=== PATIENT | male | born 1980 | race Caucasian/White ===

== ENCOUNTER 2018-10-22 17:42 | Emergency (ER) | payer OTHER ==
[~2018-10-22] VITALS: Ht 177.8 cm; Wt 76.0 kg
[2018-10-22 17:49] VITALS: BP 130/80
[2018-10-22] MEDS ORDERED: ketorolac tromethamine 15mg/ml inj. IM ONE (20:00)
[2018-10-22] MEDS ORDERED: cephalexin 250mg capsule PO ONE (20:00)
[2018-10-22] MEDS ORDERED: CEPH-572 PO (20:07)
== END 2018-10-22 20:22 | disposition home or self-care (01) ==
LOC: ER 17:43
DX: I80.02 Phlebitis and thrombophlebitis of superficial vessels of left lower extremity (principal); L03.116 Cellulitis of left lower limb; M10.9 Gout, unspecified; Z79.2 Long term (current) use of antibiotics
CPT/HCPCS: 96372; 99283; J1885

== ENCOUNTER 2020-09-27 20:52 | Emergency (ER) | payer SELFPAY ==
[~2020-09-27] VITALS: Ht 175.3 cm; Wt 95.5 kg
[2020-09-27 21:00] VITALS: BP 114/83
== END 2020-09-27 21:23 ==
LOC: ER 20:53
DX: F10.129 Alcohol abuse with intoxication, unspecified (principal); G89.29 Other chronic pain; F17.200 Nicotine dependence, unspecified, uncomplicated; V87.7XXA Person injured in collision between other specified motor vehicles (traffic), initial encounter; Y93.89 Activity, other specified; Y92.488 Other paved roadways as the place of occurrence of the external cause; Y99.8 Other external cause status; Y90.9 Presence of alcohol in blood, level not specified
CPT/HCPCS: 99283

== ENCOUNTER 2022-10-31 14:14 | Emergency (ER) | payer OTHER ==
[~2022-10-31] VITALS: Ht 175.3 cm; Wt 76.4 kg
[2022-10-31 14:30] VITALS: BP 94/61
--- NOTE | 2022-10-31 15:32 | NUR ---
LAB AT BEDSIDE COLLECTING BLOOD AT THIS TIME.
--- NOTE | 2022-10-31 15:45 | NUR ---
CARE SPECIALIST MALIHA INFORMED RN THAT PT WILL NOT NEED MEDICAL CLEARANCE AND PT IS FREE TO LEAVE HOSPITAL. PT STATED THAT HE DOES NOT WANT TO HAVE FURTHER TESTING DONE AND WANTS TO LEAVE AMA. PT SIGNED AMA FORM AND REFUSED DIVING FISHER/ABD US/AND TO ANSWER ANY FURTHER QUESTIONS OR HAVE VS TAKEN. PT LEFT ED AMBULATORY. NO IV WAS PLACED. PT STATED HE HAS MONEY AND WILL HAVE [facility] TRANSPORT HIM HOME.
[2022-10-31 16:13] LABS: ALANINE AMINOTRANSFERASE 57 U/L (12-78); ALBUMIN 1.7 G/DL (3.4-5.0); ALKALINE PHOSPHATASE 204 IU/L (46-116); ANION GAP 12 (8-16); BILIRUBIN,TOTAL 21.7 MG/DL (0.1-1.0); BLOOD UREA NITROGEN 6 MG/DL (7-18); CALCIUM 8.4 MG/DL (8.5-10.1); CHLORIDE 98 MMOL/L (99-107); HEMOGLOBIN 8.8 g/dl (14.0-17.9); LIPASE 155 U/L (73-393); SODIUM 132 MMOL/L (135-145); TOTAL CARBON DIOXIDE 21.7 MMOL/L (24-32)
[2022-10-31 16:15] LABS: BASOPHILS # (AUTO) 0.1 X10'3 (0-0.2); BASOPHILS % (AUTO) 1.6 % (0-1); EOSINOPHILS # (AUTO) 0.2 X10'3 (0-0.9); HEMATOCRIT 28.1 % (42.0-52.0); LYMPHOCYTES # (AUTO) 0.9 X10'3 (1.1-4.8); LYMPHOCYTES % (AUTO) 21.5 % (21-51); MEAN CORPUSCULAR HEMOGLOBIN 29.9 PG (27.0-31.0); MEAN CORPUSCULAR HGB CONC 31.4 g/dL (33.0-36.5); MONOCYTES # (AUTO) 0.4 X10'3 (0-0.9); MONOCYTES % (AUTO) 8.5 % (2-12); NEUTROPHILS # (AUTO) 2.7 X10'3 (1.8-7.7); NEUTROPHILS % (AUTO) 64.4 % (42-75); PLATELET COUNT 335 X10'3 (140-440); RED BLOOD COUNT 2.96 X10'6 (4.70-6.10); RED CELL DISTRIBUTION WIDTH 28.8 % (11.5-14.5); WHITE BLOOD COUNT 4.2 X10'3 (4.5-11.0)
[2022-10-31 16:17] LABS: PLATELET ESTIMATE NORMAL
[2022-10-31 16:18] LABS: ALBUMIN/GLOBULIN RATIO 0.4 (1.1-1.5); ANISOCYTOSIS 3+; ASPARTATE AMINO TRANSFERASE 82 U/L (10-37); BUN/CREATININE RATIO 6.5 (10.0-20.0); CREATININE 0.92 MG/DL (0.60-1.10); GLUCOSE 103 MG/DL (70-104); HYPOCHROMASIA 1+; POLYCHROMASIA 1+; ROULEAUX 1+; SCHISTOCYTES FEW; TOTAL PROTEIN 6.3 G/DL (6.4-8.2); eGFR > 90 ML/MIN
[2022-10-31 16:23] LABS: POTASSIUM 2.4 MMOL/L (3.5-5.1)
== END 2022-10-31 15:50 | disposition home or self-care (01) ==
LOC: ER 14:14
DX: R17 Unspecified jaundice (principal); G89.29 Other chronic pain; M54.9 Dorsalgia, unspecified
CPT/HCPCS: 36415; 80053; 83690; 85008; 85025; 99283